=== PATIENT | male | born 2000 | race Two or more races ===

== ENCOUNTER 2020-01-17 21:25 | Emergency (ER) | payer OTHER ==
[~2020-01-17] VITALS: Ht 185.4 cm; Wt 83.3 kg
[2020-01-17 21:43] VITALS: BP 173/101
== END 2020-01-18 00:06 | disposition home or self-care (01) ==
LOC: ED 21:55
DX: S63.512A Sprain of carpal joint of left wrist, initial encounter (principal); G89.11 Acute pain due to trauma; W01.0XXA Fall on same level from slipping, tripping and stumbling without subsequent striking against object, initial encounter; Y93.89 Activity, other specified; Y92.098 Other place in other non-institutional residence as the place of occurrence of the external cause; Y99.8 Other external cause status
CPT/HCPCS: 29125; 99283